=== PATIENT | female | born 1980 | race Caucasian/White ===

== ENCOUNTER 2022-04-10 12:37 | Outpatient (CLI) | payer OTHER, SELFPAY ==
[2022-04-10 14:20] LABS: Albumin* 4.3 g/dL (3.3-5.0); Chloride* 105 mmol/L (96-114)
[2022-04-10 14:21] LABS: Potassium* 4.1 mmol/L (3.6-5.1); Sodium* 140 mmol/L (135-149)
[2022-04-10 14:23] LABS: Aspartate Amino Transferase* 27 U/L (12-35); Carbon Dioxide* 25 mmol/L (20-32); Creatinine* 0.8 mg/dL (0.5-1.5); Estimated Glomerular Filt Rate 94 ml/min; Total Protein* 6.8 g/dL (6.0-8.3)
[2022-04-10 14:24] LABS: Alanine Aminotransferase* 17 U/L (4-35); Alkaline Phosphatase* 49 U/L (40-150); Blood Urea Nitrogen* 15 mg/dL (5-24); Calcium* 9.3 mg/dL (8.4-10.6); Glucose* 89 mg/dL (60-115)
[2022-04-10 15:09] LABS: Vitamin D 25 Hydroxy* 55 ng/mL (30-80)
== END 2022-04-10 12:38 | disposition home or self-care (01) ==
PROVIDERS: PCP Physician Assistant Medical; Visit Provider Nurse Practitioner Family
DX: Z79.899 Other long term (current) drug therapy (principal)
CPT/HCPCS: 80053; 82306; 84443

== ENCOUNTER 2025-01-11 08:33 | Outpatient (CLI) | payer OTHER, SELFPAY | END 2025-01-11 08:34 | disposition home or self-care (01) | LOC: NFLDREF 15:19 | PROVIDERS: PCP Physician Assistant Medical; Referring Provider Physician Assistant Medical; Visit Provider Physician Assistant Medical | DX: Z00.00 Encounter for general adult medical examination without abnormal findings (principal); N95.1 Menopausal and female climacteric states; Z13.228 Encounter for screening for other metabolic disorders; Z13.6 Encounter for screening for cardiovascular disorders; Z13.21 Encounter for screening for nutritional disorder | CPT/HCPCS: 80053; 80061; 82306; 84443 ==